=== PATIENT | male | born 1950 | race Caucasian/White ===

== ENCOUNTER → 2017-07-26 | Outpatient (CLI) | payer OTHER ==
[~2017-07-26] MED LIST: ASA81BEC PO; CLONAZEPAM 0.50.5 M1 PO; CLONAZEPAM PO; CRESTOR20 MG PO; CRESTOR40 MG PO; FLEXERIL PO; HYDROCODON-ACE1 EAC5 PO; IBUPROFEN 200200 M1 PO; LAMICTAL XR50 MG PO; LAMOTRIGINE100 MG PO; OMEPRAZOLE 20 M20 M1 PO; OXYCONTIN CR 1010 M1 PO; ROBAXIN 750 MG750 MG PO; VICODIN 5-5001 EACH PO
== END ==
LOC: RAD 11:28
DX: R05 Cough (principal)

== ENCOUNTER → 2018-07-16 | Outpatient (CLI) | payer OTHER | LOC: MRI 07:11 | DX: M47.27 Other spondylosis with radiculopathy, lumbosacral region (principal); M51.16 Intervertebral disc disorders with radiculopathy, lumbar region; N28.1 Cyst of kidney, acquired; Z88.8 Allergy status to other drugs, medicaments and biological substances; Z98.890 Other specified postprocedural states ==

== ENCOUNTER → 2018-08-01 | Outpatient (CLI) | payer OTHER ==
[~2018-08-01] VITALS: Ht 188 cm; Wt 104.8 kg
[~2018-08-01] MED LIST changes: -CRESTOR40 MG PO; -HYDROCODON-ACE1 EAC5 PO; +HYDROCODON-ACE1 EAC7 PO; +LOSARTAN POTASS50 MG PO; +NABUMETONE 500500 M1 PO; +PERCOCET PO; +PRAVACHOL20 MG PO
--- NOTE | ~2018-08-01 | HPC ---
[facility] [place] [place] [address] PAIN MANAGEMENT CONSULTATION Name: MARIBEL HERNANDEZ Room #: REG [facility] MGeorgiana.#: [id number] Admission: 08/01/18 ������������������ Attend Phys: Jung Morrison MD Discharge: ������������������ Date of : 48 Report #: [id number] THIS REPORT FOR: //name// CC: Jung Osman DATE OF SERVICE: 08/01/2018 CHIEF COMPLAINT: Left leg pain, arm pain and back pain. HISTORY OF PRESENT ILLNESS: The patient is a 68-year-old gentleman who has been referred to the Pain Clinic for evaluation. He has been experiencing some pain over the last 2 months. It involves a stabbing sensation in the left lower leg. Notes the pain is worse when he is walking, improves somewhat when he is lying down. Described as continuous, steady, constant, burning, sharp and stabbing. Rates it as an 8/10 at this juncture. He has had spinal fusion and this was in 2013. He has been using hydrocodone and nonsteroidal anti-inflammatory medication to help control the pain. He is having some difficulty sleeping secondary to the pain. He has noted some subjective left leg weakness. He did fall after getting out of his truck because of his leg giving out. ALLERGIES: No known drug allergies. CURRENT MEDICATIONS: Oxycodone 5 mg one p.o. q. 4 hours p.r.n., nabumetone 500 mg t.i.d., losartan 50 mg, hydrocodone 5 mg q.4 hours p.r.n., Pravachol 20 mg, lamotrigine 100 mg b.i.d. PAST MEDICAL HISTORY: Back pain with radiculopathy, leg weakness, history of lumbar fusion, lumbar stenosis, hypercholesterolemia. PAST SURGICAL HISTORY: Spinal fusion in 2013. SOCIAL HISTORY: He is not working at this juncture, has been off work for the last 5 years. REVIEW OF SYSTEMS: Generally good health, frequent urination, awakens at night to urinate, bleeding, easy bruising tendency. LABORATORY DATA: MRI of the lumbar spine dated 07/16/2018. Comparison was made with MRI 05/25/2012. 1. L3-L4, there is prominent broad-based posterior disk bulge, which indents the ventral thecal sac. There is prominence of the dorsal epidural fat. The combination of these findings result in severe spinal canal stenosis with narrowing of the thecal sac to 6 mm. There is redundancy of the nerve root of the cauda equinus cephalad at 2 levels seen at sagittal T2 slice 8 compatible to severe central spinal canal stenosis at this level. There is severe bilateral [address] [address] PAIN MANAGEMENT CONSULTATION Name: MARIBEL HERNANDEZ Room #: REG CL [facility].#: [id number] Admission: 08/01/18 ������������������ Attend Phys: Jung Morrison MD Discharge: ������������������ Date of : 48 Report #: [id number] facet arthrosis and facet spurring resulting in subarticular zone stenosis. There is a thickening of the ligamentum flavum at 5 mm. There is moderate right and elvhuada-nv-wvspua medial left foraminal stenosis. 2. L4-L5 diskectomy changes are noted without significant residual disk bulge or protrusion or evidence of osteophyte ridging. There is some left posterior osteophyte ridging with some mild effacement of the descending L5 nerve root. There is severe bilateral facet arthrosis. There is no significant right neural foraminal stenosis. There is ukqdelmw-hs-cnvbbi left neural foraminal stenosis due to foraminal endplate osteophyte ridging and facet spurring seen on slices, 5. 3. L5-S1 partial diskectomy changes noted with this prosthesis centered within the right posterior aspect of the disk space. There is some right posterior osteophyte ridging abutting the descending right S1 nerve root without significant displacement or obvious impingement. There is foraminal disk bulging and endplate ossific crowding resulting in moderate to severe/right and pbswkoyo-da-omdqlv medial left neural foraminal stenosis. There is severe facet arthrosis. No significant overall central canal stenosis. PAIN CLINIC ASSESSMENT/PQRS: 1. History of osteoarthritis with osteoarthritic changes in the lumbar area. The patient is not being treated for rheumatoid arthritis. 2. Height 6 feet 2 inches, weight 231 pounds, BMI is 29.6. 3. Vital signs: Blood pressure 155/90, pulse 70, respiratory rate 20, room air saturation 100%. 4. Pain intensity, 8/10. 5. Fall history: The patient fell off his truck recently. 6. Blood thinner. The patient is not on a blood thinning medication. 7. Hypertension. The patient has not been treated for hypertension. 8. Opioids greater than 6 weeks. The patient is receiving opioid medication from his primary. 9. Risk assessment tool, low for opioids. 10. Functional assessment ____/70. 11. Recreational drug use. The patient denies use of recreational drugs. 12. Tobacco: The patient smokes 1 pack of cigarettes per day and he smoked for the last 20 years. Discussed smoking cessation. 13. Alcohol. The patient drinks 2 alcoholic beverages daily. PHYSICAL EXAMINATION: GENERAL: The patient is a well-developed, well-nourished white male. Appears his stated age. He is alert and oriented x 3. His affect is appropriate. Speech is fluent. HEENT: Normocephalic, atraumatic. Extraocular eye muscles intact. Sclerae nonicteric. Mucous membranes are moist. NECK: Without adenopathy or JVD. HEART: Regular rate. ABDOMEN: Nontender. Bowel sounds present. [facility] [address] [place] [address] PAIN MANAGEMENT CONSULTATION Name: MARIBEL HERNANDEZ [id number] Admission: 08/01/18 ������������������ Attend Phys: Jung Morrison MD Discharge: ������������������ Date of : 48 Report #: [id number] EXTREMITIES: Upper extremity muscle strength is judged to be 5/5 for the major muscle groups in the upper extremity. The patient has pain and discomfort in the lower portion of his back with pain in the L3-L4 dermatomal distribution. Notes some pain and discomfort on the left. IMPRESSION: 1. Lumbar radiculopathy, status post lumbar fusion in 2013. 2. Left leg pain. 3. Tobacco use. 4. Back pain with radiculopathy, 5. Leg weakness. 6. History of lumbar fusion and lumbar stenosis. 7. Hypercholesterolemia. RECOMMENDATIONS: We discussed treatment options with the patient. We discussed risks and benefits of the procedure with the patient. Possibility of infection, worsening of pain, no improvement in pain, nerve damage were discussed and the patient elects to proceed. The patient will return to the Pain Clinic. We would then proceed with an epidural steroid injection at the L2-L3 interspace. We would like to thank you for letting us participate in his care. We hope he continues to improve. ��������������������������������������������� ���������������������������������������� By: ��������������������������������������������� [id number] Jung Morrison MD /nt
[2018-08-01 14:25] VITALS: BP 155/90
--- NOTE | 2018-08-01 15:00 | NUR ---
Pain Clinic Assessment: 1. History of Osteoarthritis: History of Rheumatoid Arthritis: 2. Height: 6 ft. 2 in. 188.0 cm. Weight: 231.0 lb. oz. 104.781 kg. Patient's BMI: 29.6 3. Vital Signs: BP: 155/90 Pulse: 70 Resp: 20 Temp: 02 Sat: 100 ECG Mon: 4. Pain Intensity: 8 5. Fall Risk: Dizziness: N Needs help standing or walking: N Fallen in the last 3 months: Y Fall risk comments: 6. Patient on Blood Thinner: None 7. History of Hypertension: N 8. Opioid Therapy greater than 6 weeks: N Opiate Contract Signed: 9. Risk Assessment Tool Provided: 10. Functional Assessment Tool: 11. Recreational Drug Use: Never Drug Type: Tobacco Use: Former Smoker Tobacco Type: Cigarettes Amount or Packs/day: 1 How Many Years: 20 Alcohol Use: Yes Frequency: Daily Quant: 2
== END ==
LOC: PAIN 07:04
DX: M54.16 Radiculopathy, lumbar region (principal); M43.26 Fusion of spine, lumbar region; M79.605 Pain in left leg; M48.061 Spinal stenosis, lumbar region without neurogenic claudication; E78.00 Pure hypercholesterolemia, unspecified; Z72.0 Tobacco use; Z79.899 Other long term (current) drug therapy; Z79.891 Long term (current) use of opiate analgesic

== ENCOUNTER → 2018-08-03 | Outpatient (CLI) | payer OTHER ==
[~2018-08-03] VITALS: Ht 188 cm; Wt 106.1 kg
--- NOTE | ~2018-08-03 | HPC ---
[facility] [place] [address] [place] [address] PAIN MANAGEMENT CONSULTATION Name: MARIBEL HERNANDEZ [facility] [id number] Admission: 08/03/18 ������������������ Attend Phys: Jung Morrison MD Discharge: ������������������ Date of : 48 Report #: [id number] THIS REPORT FOR: //name// CC: Jung Osman DATE OF SERVICE: 08/03/2018 CHIEF COMPLAINT: Back pain, left leg pain. HISTORY: The patient is a 68-year-old gentleman, who has been experiencing pain, which has been radiating down the lower portion of his back and involving his left leg. He describes a burning, sharp, and stabbing discomfort. He rates it as an 8/10. Walking and sitting can be problematic. Lying down and application of heat has been beneficial. He rates it as continuous, steady, constant, burning, sharp, and stabbing. He has undergone lumbar fusion with placement of rods and pedicle screws. CURRENT MEDICATIONS: Oxycodone 5 mg 1 p.o. q.4-6 hours p.r.n., hydrocodone 5 mg q.4-6 hours p.r.n., nabumetone 500 mg t.i.d., losartan 50 mg daily, pravastatin 20 mg, and lamotrigine 100 mg b.i.d. ALLERGIES: THE PATIENT IS ALLERGIC TO CORTISONE AND LIPITOR. PAIN CLINIC ASSESSMENT AND PQRS: 1. Osteoarthritic changes in the low back area. The patient is not being treated for rheumatoid arthritis. 2. Pain intensity is 8/10. 3 Fall risk. The patient did fall out of his truck recently. 4. Blood thinner. The patient is not on a blood thinning medication. 5. Hypertension. The patient is being treated for hypertension. 6. Opioid therapy greater than 6 weeks. The patient has received medication from his primary physician. 7. Risk assessment tool, low for opioid use. 8. Functional assessment, 52/70. 9. Recreational drug use. The patient denies use of recreational drugs. 10. Tobacco. The patient is a former smoker. 11. Alcohol. The patient drinks alcoholic beverages on occasion. PHYSICAL EXAMINATION: GENERAL: The patient is a well-developed, well-nourished white male. He appears his stated age. He is alert and oriented x 3. His affect is appropriate. Speech is fluent. Height is 6 feet 2 inches, weight is 234 pounds, and BMI is 30. VITAL SIGNS: Blood pressure is 139/84, pulse is 70, respiratory rate is 16, and room air saturation is 98%. [address] [address] PAIN MANAGEMENT CONSULTATION Name: MARIBEL HERNANDEZ RAYMUNDO Room #: REG [facility].#: [id number] Admission: 08/03/18 ������������������ Attend Phys: Jung Morrison MD Discharge: ������������������ Date of : 48 Report #: [id number] HEENT: Normocephalic, atraumatic. Extraocular eye muscles intact. Sclerae nonicteric. Mucous membranes are moist. NECK: Without adenopathy or JVD. HEART: Regular rate. ABDOMEN: Nontender. Bowel sounds present. EXTREMITIES: Upper extremity muscle strength judged to be generally 5-/5 for the major muscle groups in the upper extremity. The patient has pain and discomfort that is radiating down the lower portion of his back in the L2-L3 dermatomal distribution on his left leg. He note some pain in the back area as well. He has a well-healed scar in the midline back area from approximately L3 down to the dorsum of sacrum. IMPRESSION: 1. Hypertension. 2. Hypercholesterolemia. 3. History of low back pain, status post failed back syndrome. RECOMMENDATIONS: We have discussed treatment options with the patient. Risks and benefits of an epidural steroid injection were discussed. They include but are not limited to infection, worsening of pain, no improvement in pain. The patient elects to proceed. The patient is having pain involving the left anterior thigh area. Burning and discomfort as a result of nerve root irritation. We will proceed with an epidural steroid injection. Risks and benefits of an epidural steroid injection at the L2-L3 interspace was discussed. Possible complications of the procedure, which could include but are not limited to infection, worsening of pain, no improvement in pain were discussed and the patient elects to proceed. PROCEDURE NOTE: The patient was taken to the procedure area. He was assisted in getting on examination table. His back was sterilely prepped with a Betadine solution. A pillow was placed under his abdomen to bolster and improve positioning. Fluoroscopy using anterior, posterior as well as lateral viewing were implemented. The left paraspinous area was identified. A 25-gauge needle was then advanced into this area using the left paraspinal approach. This area was anesthetized with 0.25% bupivacaine. A 17-gauge Tuohy with loss of resistance technique was used to gain access to the epidural space. There was no CSF, heme, or paresthesia. A total of 80 mg Depo-Medrol, 40 mg of triamcinolone, and 2 mL of 0.25% bupivacaine was injected. The patient tolerated the procedure well. A total of about 20 seconds fluoroscopy time was used. The patient's pain decreased to 0 at the time of discharge. He will follow up in the future as needed. [place] [id number] PAIN MANAGEMENT CONSULTATION Name: MARIBEL HERNANDEZ Room #: REG DEVIN Cisneros#: [id number] Admission: 08/03/18 ������������������ Attend Phys: Jung Morrison MD Discharge: ������������������ Date of : 48 Report #: [id number] We would like to thank you for letting us to participate in his care. We hope he continues to improve. ��������������������������������������������� ���������������������������������������� By: ��������������������������������������������� [id number] Jung Morrison MD /PMT
[2018-08-03 08:08] VITALS: BP 139/84
--- NOTE | 2018-08-03 08:20 | NUR ---
Pain Clinic Assessment: 1. History of Osteoarthritis: History of Rheumatoid Arthritis: 2. Height: 6 ft. 2 in. 188.0 cm. Weight: 234.0 lb. oz. 106.142 kg. Patient's BMI: 30.0 3. Vital Signs: BP: 139/84 Pulse: 70 Resp: 16 Temp: 02 Sat: 98 ECG Mon: 4. Pain Intensity: 8 5. Fall Risk: Dizziness: N Needs help standing or walking: N Fallen in the last 3 months: N Fall risk comments: 6. Patient on Blood Thinner: None 7. History of Hypertension: N 8. Opioid Therapy greater than 6 weeks: N Opiate Contract Signed: 9. Risk Assessment Tool Provided: 10. Functional Assessment Tool: 11. Recreational Drug Use: Never Drug Type: Tobacco Use: Former Smoker Tobacco Type: Amount or Packs/day: How Many Years: Alcohol Use: Yes Frequency: Quant:
== END | disposition home or self-care (01) ==
LOC: PAIN 06:40
DX: M54.16 Radiculopathy, lumbar region (principal); I10 Essential (primary) hypertension; E78.00 Pure hypercholesterolemia, unspecified; Z79.899 Other long term (current) drug therapy; Z88.8 Allergy status to other drugs, medicaments and biological substances; Z87.891 Personal history of nicotine dependence

== ENCOUNTER → 2019-04-22 | Outpatient (CLI) | payer OTHER | LOC: MRI 07:04 | DX: M48.07 Spinal stenosis, lumbosacral region (principal); M47.27 Other spondylosis with radiculopathy, lumbosacral region; M51.17 Intervertebral disc disorders with radiculopathy, lumbosacral region; M79.605 Pain in left leg ==

== ENCOUNTER → 2019-05-15 | Outpatient (CLI) | payer OTHER ==
[~2019-05-15] VITALS: Ht 188 cm; Wt 112.3 kg
--- NOTE | ~2019-05-15 | HPC ---
[facility] [place] [address] PAIN MANAGEMENT CONSULTATION Name: MARIBEL HERNANDEZ [id number]mission: 05/15/19 Attend Phys: Moises Castillo DO Discharge: Date of : 48 Report #: [id number] THIS REPORT FOR: //name// CC: Moises Osman MD DATE OF SERVICE: 05/15/2019 CHIEF COMPLAINT: Low back pain, left lower extremity pain with paresthesias. HISTORY OF PRESENT ILLNESS: As you know, the patient is a 69-year-old male who returns today in followup visit to undergo lumbar epidural injection under fluoroscopic guidance. The patient was last seen in our clinic on 08/04/2018 where he underwent an epidural injection under fluoroscopic guidance. He reports improvement in symptoms of 50%, lasting for greater than a month. He returns today in followup visit to undergo next in the series. He has been advised risks and benefits, states understood and wished to proceed. The patient does report pain is exacerbated with walking, improves with lying down, rest, repositioning and previous epidural injection. He describes the pain as constant, burning, sharp and stabbing. He returns for an epidural injection. ALLERGIES: CORTISONE AND ATORVASTATIN. CURRENT MEDICATIONS: Lamotrigine, pravastatin, losartan. SOCIAL HISTORY: The patient reports himself as a nonsmoker. He denies IV or illicit drug use. Admits to 2 alcohol beverages per day. He is retired, unaccompanied today. IMAGING: No new imaging available. PQRS: The patient has known arthritic changes of the lumbar spine. No rheumatoid arthritis. He is placing pain intensity at 4/10. He is not a fall risk, has not had a fall in last 3 months. He is not on blood thinners, but is treated for hypertension. He is on no opioids, has a low opioid addiction potential. Pain impact score 21/70 indicating mild interference to moderate interference of daily activities secondary to pain. PHYSICAL EXAMINATION: VITAL SIGNS: Blood pressure 162/80, pulse 66, respiratory rate 20 and unlabored. The patient is 99% on room air, height 6 feet 2 inches tall, weight 247.6 pounds, BMI calculated 31.8. GENERAL: Well-developed, well-nourished, well-hydrated 69-year-old male appearing stated age. He is in no acute distress, awake, alert and oriented x 3. Current pain score is rated at around 4/10. [facility] [address] [place] [address] PAIN MANAGEMENT CONSULTATION Name: MARIBEL HERNANDEZ [facility] [id number] Admission: 05/15/19 Attend Phys: Moises Castillo DO Discharge: Date of : 49 Report #: [id number] HEENT: Normocephalic, atraumatic. Pupils equal, round, reactive to light. EXTREMITIES: Show no clubbing, no cyanosis, and no edema. MUSCULOSKELETAL: Lower extremity strength appears equal and symmetrical 5/5, intact to light touch from L1 through S2 dermatomes. Seated straight leg raising negative. Supine straight leg raising positive on the left. Danielito's test negative. Modified Gaenslen's positive for axial back pain. Well-healed surgical scar lower lumbar spine. ASSESSMENT: 1. Symptomatic lumbar radiculopathy. 2. Failed lumbar spine surgery. 3. Chronic intractable pain. PLAN: 1. The patient returns today in followup visit requesting to undergo next in the series of epidural injections. He has had one epidural injection provided in 07/2018, which gave 50% improvement in overall pain. Unfortunately, his symptoms did return. He returns today to undergo next in the series. He has been advised risks and benefits of the procedure. These risks include but are not necessarily limited to bleeding, bruising, infection, worsening pain, no relief of pain, also risk of temporary or permanent muscle weakness, temporary or permanent nerve damage, possible paralysis, post-dural puncture headache and . The patient states understood and wished to proceed. 2. No medication changes made at today's visit. The patient will continue current medical therapy as prior prescribed. 3. We will see the patient back in followup visit on an as needed basis. PROCEDURE NOTE: DESCRIPTION OF PROCEDURE: L3-L4 left paramedian epidural steroid injection under fluoroscopic guidance. This is the second procedure of the first series that the patient is undergoing. After obtaining written consent, the patient was taken back to the fluoroscopy suite, placed in a prone position with pillow under the abdomen to decrease lumbar lordosis. The skin overlying the lumbosacral area was then prepped and draped in aseptic fashion. The L3-L4 vertebral interspace was then identified by AP fluoroscopy. The skin and subcutaneous tissue overlying the target site of injection was anesthetized with 3 mL 1% lidocaine. A 20-gauge 3-1/2 inch Tuohy needle was then advanced under fluoroscopic guidance towards the epidural space using a left paramedian approach. The epidural space was identified using loss of resistance to air technique. After negative aspiration for heme or cerebrospinal fluid, a total of 1 mL of Omnipaque was injected. A lumbar epidurogram was confirmed using both AP and lateral [address] [address] PAIN MANAGEMENT CONSULTATION Name: MARIBEL HERNANDEZ Room #: REG CLI [facility]#: [id number] Admission: 05/15/19 Attend Phys: Moises Castillo DO Discharge: Date of : 49 Report #: [id number] fluoroscopy. After negative aspiration for heme or cerebrospinal fluid, 5 mL of a solution containing 2 mL 40 mg per mL, 80 mg total triamcinolone along with 3 mL of lidocaine 1% was injected in increments. Contrast spread was noted posterior epidural space. The needle was then retracted approximately half way and needle tract flushed with 1 mL of 1% lidocaine. Needle was then removed. There were no apparent sensory or motor deficits in the lower extremity following the procedure. A sterile bandage was placed over the injection site. The heart rate, pulse, oximetry and blood pressure were continuously monitored after the procedure. There were no apparent complications. The patient tolerated the procedure well and was carefully escorted to the recovery room in stable condition. There were no apparent complications. After meeting discharge criteria, the patient was then discharged home. By: [id number] Moises Castillo DO /nt
[2019-05-15 12:54] VITALS: BP 162/80
--- NOTE | 2019-05-15 13:04 | NUR ---
Pain Clinic Assessment: 1. History of Osteoarthritis: BACK History of Rheumatoid Arthritis: 2. Height: 6 ft. 2 in. 188.0 cm. Weight: 247.6 lb. oz. 112.311 kg. Patient's BMI: 31.8 3. Vital Signs: BP: 162/80 Pulse: 66 Resp: 20 Temp: 02 Sat: 99 ECG Mon: 4. Pain Intensity: 4 5. Fall Risk: Dizziness: N Needs help standing or walking: N Fallen in the last 3 months: N Fall risk comments: 6. Patient on Blood Thinner: None 7. History of Hypertension: N 8. Opioid Therapy greater than 6 weeks: N Opiate Contract Signed: 9. Risk Assessment Tool Provided: LOW RISK 10. Functional Assessment Tool: 11. Recreational Drug Use: Never Drug Type: Tobacco Use: Former Smoker Tobacco Type: Amount or Packs/day: How Many Years: Alcohol Use: Yes Frequency: Special Occasions Quant:
== END | disposition home or self-care (01) ==
LOC: PAIN 06:56
DX: M54.16 Radiculopathy, lumbar region (principal); M96.1 Postlaminectomy syndrome, not elsewhere classified; G89.29 Other chronic pain; I10 Essential (primary) hypertension; Z98.890 Other specified postprocedural states; Z88.8 Allergy status to other drugs, medicaments and biological substances; Z79.899 Other long term (current) drug therapy; Z87.891 Personal history of nicotine dependence

== ENCOUNTER → 2019-07-09 | Outpatient (CLI) | payer OTHER | LOC: MRI 07:17 | DX: I67.82 Cerebral ischemia (principal); J34.1 Cyst and mucocele of nose and nasal sinus; E78.00 Pure hypercholesterolemia, unspecified; M54.41 Lumbago with sciatica, right side ==

== ENCOUNTER → 2019-12-02 | Outpatient (CLI) | payer OTHER | LOC: RAD 10:48 | PROVIDERS: ATTEND Neurological Surgery | DX: M47.816 Spondylosis without myelopathy or radiculopathy, lumbar region (principal); M48.061 Spinal stenosis, lumbar region without neurogenic claudication; M47.27 Other spondylosis with radiculopathy, lumbosacral region ==

== ENCOUNTER → 2020-02-17 | Outpatient (CLI) | payer OTHER | LOC: SJCVCIMAG 07:46 | PROVIDERS: ATTEND Internal Medicine Cardiovascular Disease | DX: I25.10 Atherosclerotic heart disease of native coronary artery without angina pectoris (principal); I44.0 Atrioventricular block, first degree; I49.3 Ventricular premature depolarization; E78.00 Pure hypercholesterolemia, unspecified; I10 Essential (primary) hypertension; Z79.899 Other long term (current) drug therapy; Z87.891 Personal history of nicotine dependence ==

== ENCOUNTER → 2020-08-17 | Outpatient (CLI) | payer OTHER | LOC: SJCVC 09:27 | PROVIDERS: ATTEND Internal Medicine Cardiovascular Disease | DX: I44.0 Atrioventricular block, first degree (principal); I25.10 Atherosclerotic heart disease of native coronary artery without angina pectoris; E78.00 Pure hypercholesterolemia, unspecified; R60.9 Edema, unspecified; I10 Essential (primary) hypertension; E78.5 Hyperlipidemia, unspecified; Z98.61 Coronary angioplasty status; Z79.82 Long term (current) use of aspirin; Z79.899 Other long term (current) drug therapy; Z87.891 Personal history of nicotine dependence ==

== ENCOUNTER → 2020-08-20 | Outpatient (CLI) | payer OTHER | LOC: SJCVCIMAG 09:01 | PROVIDERS: ATTEND Internal Medicine Cardiovascular Disease | DX: M79.661 Pain in right lower leg (principal); M79.662 Pain in left lower leg; M79.89 Other specified soft tissue disorders; Z79.899 Other long term (current) drug therapy; Z87.891 Personal history of nicotine dependence ==

== ENCOUNTER → 2020-08-24 | Outpatient (CLI) | payer OTHER | LOC: SJCVC 09:20 | PROVIDERS: ATTEND Internal Medicine Cardiovascular Disease | DX: I10 Essential (primary) hypertension (principal); I25.10 Atherosclerotic heart disease of native coronary artery without angina pectoris; M54.41 Lumbago with sciatica, right side; E78.00 Pure hypercholesterolemia, unspecified; R00.0 Tachycardia, unspecified; Z95.5 Presence of coronary angioplasty implant and graft ==

== ENCOUNTER → 2020-09-09 | Outpatient (CLI) | payer OTHER | LOC: SJCVC 09:30 | PROVIDERS: ATTEND Internal Medicine Cardiovascular Disease | DX: I25.10 Atherosclerotic heart disease of native coronary artery without angina pectoris (principal); I10 Essential (primary) hypertension; E78.00 Pure hypercholesterolemia, unspecified; F32.9 Major depressive disorder, single episode, unspecified; F41.9 Anxiety disorder, unspecified; E78.5 Hyperlipidemia, unspecified; R60.9 Edema, unspecified; Z88.8 Allergy status to other drugs, medicaments and biological substances; Z79.82 Long term (current) use of aspirin; Z79.899 Other long term (current) drug therapy; Z87.891 Personal history of nicotine dependence; Z72.89 Other problems related to lifestyle ==

== ENCOUNTER → 2020-10-08 | Outpatient (CLI) | payer OTHER | LOC: SJCVC 08:26 | PROVIDERS: ATTEND Internal Medicine Cardiovascular Disease | DX: I25.10 Atherosclerotic heart disease of native coronary artery without angina pectoris (principal); I10 Essential (primary) hypertension; M54.41 Lumbago with sciatica, right side; E78.00 Pure hypercholesterolemia, unspecified; Z95.5 Presence of coronary angioplasty implant and graft ==

== ENCOUNTER → 2021-04-28 | Outpatient (CLI) | payer OTHER | LOC: SJCVC 10:23 | PROVIDERS: ATTEND Internal Medicine Cardiovascular Disease | DX: E78.00 Pure hypercholesterolemia, unspecified (principal); I25.10 Atherosclerotic heart disease of native coronary artery without angina pectoris; I10 Essential (primary) hypertension; R60.9 Edema, unspecified; E78.5 Hyperlipidemia, unspecified; F41.9 Anxiety disorder, unspecified; F32.A Depression, unspecified; M54.40 Lumbago with sciatica, unspecified side; Z79.82 Long term (current) use of aspirin; Z79.899 Other long term (current) drug therapy; Z72.89 Other problems related to lifestyle; Z87.891 Personal history of nicotine dependence; Z88.8 Allergy status to other drugs, medicaments and biological substances ==